=== PATIENT | female | born 1995 | race Caucasian/White ===

== ENCOUNTER → 2018-03-19 01:58 | Observation (INO) ==
[2018-03-19 00:43] LABS: Basophils % 0.2 %; Eosinophils # 0.1 K/mcL (0.0-0.6); Eosinophils % 0.4 %; Hematocrit 32.6 % (35.3-44.9); Hemoglobin 11.4 g/dL (11.5-15.4); Immature Granulocytes % 0.8 % (0-4); Lymphocytes # 2.8 K/mcL (0.6-4.6); Lymphocytes % 16.9 %; Mean Corpuscular Hemoglobin 31.6 pg (28.0-33.3); Mean Corpuscular Volume 90.3 fL (83.0-100.0); Mean Platelet Volume 9.5 fL (9.4-12.4); Monocytes % 5.7 %; Neutrophils # 12.6 K/mcL (1.6-8.9); Platelet Count 303 K/mcL (140-400); Red Blood Count 3.61 M/mcL (3.82-4.97); Red Cell Distribution Width 13.2 % (11.5-14.5)
[2018-03-19 00:45] LABS: Bilirubin,Urine Negative (Negative); Blood,Urine Negative (Negative); Clarity,Urine Clear (Clear); Color,Urine Yellow (Yellow); Glucose,Urine (UA) Normal (Normal); Ketones,Urine Trace mg/dL (Negative); Leukocyte Esterase,Urine Negative (Negative); Nitrite,Urine Negative (Negative); Protein,Urine Negative (Neg-Trace); Specific Gravity,Urine 1.006 (1.010-1.025); Urobilinogen,Urine Normal (Normal)
[2018-03-19 00:55] LABS: Amphetamine Screen,Urine Negative ng/mL (Cutoff=1000); Barbiturate Screen,Urine Negative ng/mL (Cutoff=200); Benzodiazepines Screen,Urine Negative ng/mL (Cutoff=200); Cannabinoid Screen,Urine Negative ng/mL (Cutoff = 50); Cocaine Screen,Urine Negative ng/mL (Cutoff= 300); Opiate Screen,Urine Negative ng/mL (Cutoff=300); Phencyclidine Screen,Urine Negative ng/mL (Cutoff=25)
[2018-03-19 01:07] LABS: BUN/Creatinine Ratio 10 (6-26); Blood Urea Nitrogen 4 mg/dL (6-20); Calcium 8.8 mg/dL (8.6-10.3); Carbon Dioxide 22 mEq/L (23-29); Chloride 103 mEq/L (98-107); Glucose 84 mg/dL (70-105); Osmolality,Calculated 280 (280-300); Potassium 3.7 mEq/L (3.5-5.1); Sodium 137 mEq/L (136-145); eGFR For Non-African Americans > 60 (> 60)
--- NOTE | 2018-03-19 01:26 | OB/GYN Progress Note ---
Date of Encounter: 03/19/18 Time of Encounter: 01:24 - Assessment and Plan (1) 25 weeks gestation of Current Visit: Yes Status: Acute (2) Viral gastroenteritis Current Visit: Yes Status: Acute Pt reports feeling better after IV fluids and zofran. She states she has zofran at home. She is now tolerating clear liquids. Discharge home with return precautions. (3) Decreased movement Current Visit: Yes Status: Acute FHT reassuring. Pt reports frequent movements since arrival to triage. Qualifiers: Fetus number: single or unspecified fetus Trimester: second trimester Qualified Code(s): O36.8120 - Decreased movements, second trimester, not applicable or unspecified Subjective - Subjective Interval history: 22 year-old presenting at 25w1d with c/o nausea/vomiting, headache, and decreased movement. She reports she has not been able to keep anything down since yesterday and now has developed a headache. She received a flu vaccine last week and reports feeling bad since. She believes she may have had some intermittent fevers but has not taken her temperature. No contractions, leaking or bleeding. Antepartum ROS: no loss of fluid, no vaginal bleeding, no movement normal , no contractions Objective - Exam FHR comments: FHT reassuring for GA Abdomen: Present: soft, gravid Uterus: Absent: tenderness - Labs Labs: Abnormal lab results WBC 16.7 K/mcL (4.3-11.1) H 03/19/18 00:25 RBC 3.61 M/mcL (3.82-4.97) L 03/19/18 00:25 Hgb 11.4 g/dL (11.5-15.4) L 03/19/18 00:25 Hct 32.6 % (35.3-44.9) L 03/19/18 00:25 Neutrophils # 12.6 K/mcL (1.6-8.9) H 03/19/18 00:25 Carbon Dioxide 22 mEq/L (23-29) L 03/19/18 00:25 BUN 4 mg/dL (6-20) L 03/19/18 00:25 Creatinine 0.39 mg/dL (0.60-1.20) L 03/19/18 00:25 Ur Specific [place] 1.006 (1.010-1.025) L 03/19/18 00:25 Urine Ketones Trace mg/dL (Negative) H 03/19/18 00:25
[~2018-03-19 01:58] MED LIST: *HR* Promethazine 25 MG/ML VIAL IVP PRN; Ondansetron 4 MG/2 ML VIAL IVP PRN; Ringers Solution, Lactated 1,000 ML IVC ONE
== END | disposition home or self-care (01) ==
LOC: 1NENULAB
PROVIDERS: ADMIT Registered Nurse; ATTEND Registered Nurse

== ENCOUNTER 2019-06-02 07:56 | Inpatient (IN) ==
[2019-06-02] MEDS ORDERED: *HR* Nalbuphine 10 MG/ML AMPUL IVP PRN (08:48)
[2019-06-02] MEDS ORDERED: Ondansetron 4 MG/2 ML VIAL IVP PRN (08:48)
[2019-06-02] MEDS ORDERED: Lidocaine 1% 20 ML MDV INFILT PRN (08:48)
[2019-06-02] MEDS ORDERED: Famotidine 20 MG/2 ML VIAL IVP PRN (08:48)
[2019-06-02] MEDS ORDERED: Metoclopramide 10 MG/2 ML VIAL IVP PRN (08:48)
[2019-06-02] MEDS ORDERED: Oxytocin 20 units/ LR 1000 mL 20 UNIT/1,000 ML BAG IVC SCH ×2 (09:00→15:50)
[2019-06-02] MEDS ORDERED: Ringers Solution, Lactated 1,000 ML IVC SCH (09:00)
[2019-06-02 09:26] LABS: Basophils % 0.2 %; Eosinophils # 0.1 K/mcL (0.0-0.6); Eosinophils % 0.7 %; Hematocrit 37.7 % (35.3-44.9); Hemoglobin 12.8 g/dL (11.5-15.4); Immature Granulocytes % 0.6 % (0-4); Lymphocytes % 16.8 %; Mean Corpuscular Hemoglobin 30.5 pg (28.0-33.3); Mean Platelet Volume 9.6 fL (9.4-12.4); Monocytes # 0.8 K/mcL (0.0-1.3); Monocytes % 6.6 %; Neutrophils # 8.8 K/mcL (1.6-8.9); Platelet Count 321 K/mcL (140-400); Red Blood Count 4.19 M/mcL (3.82-4.97); Red Cell Distribution Width 14.1 % (11.5-14.5); Segmented Neutrophils % 75.1 %; White Blood Count 11.6 K/mcL (4.3-11.1)
[2019-06-02 09:36] LABS: Amphetamine Screen,Urine Negative ng/mL (Cutoff=1000); Barbiturate Screen,Urine Negative ng/mL (Cutoff=200); Benzodiazepines Screen,Urine Negative ng/mL (Cutoff=200); Cannabinoid Screen,Urine Negative ng/mL (Cutoff = 50); Cocaine Screen,Urine Negative ng/mL (Cutoff= 300); Opiate Screen,Urine Negative ng/mL (Cutoff=300); Phencyclidine Screen,Urine Negative ng/mL (Cutoff=25)
[2019-06-02] MEDS ORDERED: Dextrose Gel 15 GM/37.5 ML TUBE PO PRN (09:58)
[2019-06-02] MEDS ORDERED: *HR* FentaNYL (PF) 100 MCG/2 ML VIAL ONE (11:55)
[2019-06-02] MEDS ORDERED: Bupivacaine-MPF 0.25% 10 ML VIAL ONE (11:55)
[2019-06-02] MEDS ORDERED: Epidural Premix (fent/bupiv) 110 ML EP ONE (11:56)
[2019-06-02] MEDS ORDERED: Epidural Premix (fent/bupiv) 110 ML EP SCH (15:00)
[2019-06-02] MEDS ORDERED: Acetaminophen 325 MG TABLET PO PRN (15:50)
[2019-06-02] MEDS ORDERED: Benzocaine/Menthol 56 GM AEROSOL SPRAY TP PRN (15:50)
[2019-06-02] MEDS ORDERED: Ibuprofen 600 MG TABLET PO PRN (15:50)
[2019-06-02] MEDS ORDERED: Lanolin 7 G OINT...G. TP PRN (15:50)
[2019-06-03 07:28] LABS: Basophils % 0.2 %; Eosinophils # 0.1 K/mcL (0.0-0.6); Eosinophils % 0.9 %; Hematocrit 36.7 % (35.3-44.9); Hemoglobin 11.8 g/dL (11.5-15.4); Immature Granulocytes % 0.6 % (0-4); Lymphocytes # 2.6 K/mcL (0.6-4.6); Lymphocytes % 20.8 %; Mean Corpuscular HGB Conc 32.2 g/dL (31.6-35.5); Mean Corpuscular Hemoglobin 29.9 pg (28.0-33.3); Mean Corpuscular Volume 93.1 fL (83.0-100.0); Monocytes # 1.1 K/mcL (0.0-1.3); Monocytes % 8.3 %; Neutrophils # 8.8 K/mcL (1.6-8.9); Platelet Count 264 K/mcL (140-400); Red Blood Count 3.94 M/mcL (3.82-4.97); Segmented Neutrophils % 69.2 %; White Blood Count 12.7 K/mcL (4.3-11.1)
[2019-06-03 07:54] VITALS: BP 121/64
[2019-06-03] MEDS ORDERED: Prenatal Vit/FA 1 EACH TABLET PO SCH (09:00)
== END 2019-06-03 16:02 | disposition home or self-care (01) | DRG 807 ==
LOC: 1NENULAB 07:56 → 1NENUOBS 15:49
PROVIDERS: ADMIT Obstetrics & Gynecology; ATTEND Obstetrics & Gynecology

== ENCOUNTER 2019-07-08 19:37 | Observation (INO) ==
[2019-07-08 21:50] LABS: Basophils % 0.3 %; Eosinophils # 0.1 K/mcL (0.0-0.6); Eosinophils % 0.5 %; Hematocrit 45.7 % (35.3-44.9); Hemoglobin 15.5 g/dL (11.5-15.4); Immature Granulocytes % 0.4 % (0-4); Lymphocytes # 1.5 K/mcL (0.6-4.6); Lymphocytes % 9.4 %; Mean Corpuscular HGB Conc 33.9 g/dL (31.6-35.5); Mean Corpuscular Hemoglobin 29.6 pg (28.0-33.3); Mean Corpuscular Volume 87.2 fL (83.0-100.0); Mean Platelet Volume 9.2 fL (9.4-12.4); Monocytes # 0.7 K/mcL (0.0-1.3); Monocytes % 4.6 %; Neutrophils # 13.1 K/mcL (1.6-8.9); Platelet Count 288 K/mcL (140-400); Red Blood Count 5.24 M/mcL (3.82-4.97); Red Cell Distribution Width 12.8 % (11.5-14.5); Segmented Neutrophils % 84.8 %; White Blood Count 15.5 K/mcL (4.3-11.1)
[2019-07-08 21:56] LABS: Bilirubin,Urine Negative (Negative); Blood,Urine Moderate (Negative); Clarity,Urine Clear (Clear); Color,Urine Yellow (Yellow); Glucose,Urine (UA) Normal (Normal); Ketones,Urine Negative (Negative); Leukocyte Esterase,Urine Trace (Negative); Nitrite,Urine Negative (Negative); PH,Urine 8.5 pH Units (5.0-8.0); Protein,Urine 30 mg/dL (Neg-Trace); Specific Gravity,Urine 1.024 (1.010-1.025); Urobilinogen,Urine Normal (Normal)
[2019-07-08 21:59] LABS: Bacteria,Urine None Seen per hpf (None-Few); Hyaline Casts,Urine None Seen per lpf (None-Few); Squamous Epithelial Cell,Urine Many per lpf (None-Few)
[2019-07-08 22:12] LABS: Alanine Aminotransferase 210 Units/L (7-52); Albumin 4.7 g/dL (3.5-5.7); Albumin/Globulin Ratio 1.5 (1.1-2.2); Alkaline Phosphatase 149 Units/L (34-104); Aspartate Amino Transferase 187 Units/L (13-39); BUN/Creatinine Ratio 14 (6-26); Bilirubin,Direct 0.1 mg/dL (0.0-0.2); Bilirubin,Indirect 0.3 mg/dL (0.0-1.0); Bilirubin,Total 0.4 mg/dL (0.3-1.0); Blood Urea Nitrogen 9 mg/dL (6-20); Calcium 9.8 mg/dL (8.6-10.3); Carbon Dioxide 25 mEq/L (23-29); Chloride 102 mEq/L (98-107); Globulin 3.2 g/dL (2.4-3.5); Glucose 104 mg/dL (70-105); Lipase 10 Units/L (11-82); Osmolality,Calculated 287 (280-300); Potassium 3.7 mEq/L (3.5-5.1); Sodium 139 mEq/L (136-145); Total Protein 7.9 g/dL (6.4-8.9); eGFR For African Americans > 60 (> 60); eGFR For Non-African Americans > 60 (> 60)
[2019-07-09] MEDS ORDERED: *HR* FentaNYL (PF) 100 MCG/2 ML VIAL IVP ONE (00:37)
[2019-07-09] MEDS ORDERED: MetroNIDAZOLE 500 MG/100 ML 500 MG/100 ML BAG IVPB ONE (00:37)
[2019-07-09] MEDS ORDERED: Ondansetron 4 MG/2 ML VIAL IVP ONE (00:37)
[2019-07-09] MEDS ORDERED: 0.9 % Sodium Chloride 1,000 ML IVC ONE (00:48)
[2019-07-09] MEDS ORDERED: Naloxone 0.4 MG/ML INJ IVP PRN ×2 (07:33→21:10)
[2019-07-09] MEDS ORDERED: Acetaminophen 325 MG TABLET PO PRN ×2 (07:33→21:10)
[2019-07-09] MEDS ORDERED: Ondansetron 4 MG/2 ML VIAL IVP PRN ×2 (07:33→21:10)
[2019-07-09] MEDS ORDERED: *HR* Dextrose 50 % in Water (Syg) 50 ML SYRINGE IVP PRN ×2 (07:36→21:10)
[2019-07-09] MEDS ORDERED: D5% in Water 1,000 ML IVC PRN ×2 (07:36→21:10)
[2019-07-09] MEDS ORDERED: Dextrose Gel 15 GM/37.5 ML TUBE PO PRN ×4 (07:36→21:10)
[2019-07-09 08:54] LABS: Prothrombin Time 11.8 Seconds (9.4-12.1)
[2019-07-09 08:57] LABS: Activated Partial Thrombo Time 32.2 Seconds (26.0-36.0)
[2019-07-09] MEDS: MetroNIDAZOLE 500 MG/100 ML 500 MG/100 ML BAG IVPB SCH ×3 (09:33→22:05)
[2019-07-09] MEDS: D5% in Lactated Ringers 1,000 ML IVC SCH ×2 (09:34→21:55)
[2019-07-09] MEDS: Insulin LISPRO 300 UNITS/3 ML VIAL SQ SCH ×2 (13:01→19:26)
[2019-07-09] MEDS ORDERED: Bupivacaine/EPI 1:200k 0.5%PF 30 ML VIAL ONE (17:45)
[2019-07-09] MEDS ORDERED: Lidocaine HCL 4 ML Topical Solution (Laryng-O-Jet Kit Sterile Pak) TP ONE (17:49)
[2019-07-09] MEDS ORDERED: Dexamethasone 4 MG/ML VIAL ONE (17:52)
[2019-07-09] MEDS ORDERED: *HR* Rocuronium Bromide 50 MG/5 ML VIAL ONE (17:52)
[2019-07-09] MEDS ORDERED: *HR* Succinylcholine 200 MG/10 ML VIAL IVP ONE (17:52)
[2019-07-09] MEDS ORDERED: Lidocaine -MPF 2% 2 ML VIAL ONE (17:52)
[2019-07-09] MEDS ORDERED: *HR* Propofol 200 MG/20 ML VIAL IVP ONE (17:52)
[2019-07-09] MEDS ORDERED: Ondansetron 4 MG/2 ML VIAL ONE (17:52)
[2019-07-09] MEDS ORDERED: *HR* Promethazine 25 MG/ML VIAL IVP PRN (17:53)
[2019-07-09] MEDS ORDERED: *HR* HYDROmorphone 2 MG TABLET PO PRN (17:53)
[2019-07-09] MEDS ORDERED: *HR* OxyCODONE Immed Rel 5 MG TABLET PO PRN (17:53)
[2019-07-09] MEDS ORDERED: *HR* Labetalol 20 MG/4 ML SYRINGE IVP PRN (17:53)
[2019-07-09] MEDS ORDERED: *HR* HYDROmorphone (PF) 1 MG/ML SYRINGE IVP PRN (17:53)
[2019-07-09] MEDS ORDERED: *HR* FentaNYL (PF) 100 MCG/2 ML VIAL ONE (17:53)
[2019-07-09] MEDS ORDERED: *HR* Midazolam HCl 2 MG/2 ML VIAL ONE (17:53)
[2019-07-09] MEDS ORDERED: Famotidine 20 MG/2 ML VIAL ONE (18:05)
[2019-07-09] MEDS ORDERED: Acetaminophen IV 1,000 MG/100 ML INFUS..BTL ONE (18:05)
[2019-07-09] MEDS ORDERED: Isovue-300 50ML VIAL ONE (18:06)
[2019-07-09] MEDS ORDERED: Scopolamine Patch 1.5 MG PATCH.TD72 ONE (18:08)
[2019-07-09] MEDS ORDERED: *HR* HYDROMORPHONE 2 MG/ML VIAL ONE (18:40)
[2019-07-09] MEDS ORDERED: D5% in Lactated Ringers 1,000 ML IVC SCH (21:10)
[2019-07-10] MEDS: Insulin LISPRO 300 UNITS/3 ML VIAL SQ SCH ×4 (00:04→17:39)
[2019-07-10] MEDS: MetroNIDAZOLE 500 MG/100 ML 500 MG/100 ML BAG IVPB SCH ×4 (04:39→22:16)
[2019-07-10 06:48] LABS: Basophils % 0.1 %; Hematocrit 35.8 % (35.3-44.9); Immature Granulocytes % 0.4 % (0-4); Lymphocytes # 1.2 K/mcL (0.6-4.6); Lymphocytes % 8.1 %; Mean Corpuscular HGB Conc 34.1 g/dL (31.6-35.5); Mean Corpuscular Hemoglobin 29.8 pg (28.0-33.3); Mean Corpuscular Volume 87.3 fL (83.0-100.0); Mean Platelet Volume 9.4 fL (9.4-12.4); Monocytes # 1.1 K/mcL (0.0-1.3); Monocytes % 7.5 %; Neutrophils # 12.2 K/mcL (1.6-8.9); Platelet Count 244 K/mcL (140-400); Red Cell Distribution Width 13.1 % (11.5-14.5); Segmented Neutrophils % 83.9 %; White Blood Count 14.6 K/mcL (4.3-11.1)
[2019-07-10 06:49] LABS: Hemoglobin 12.2 g/dL (11.5-15.4)
[2019-07-10 07:09] LABS: Alanine Aminotransferase 359 Units/L (7-52); Albumin 3.5 g/dL (3.5-5.7); Albumin/Globulin Ratio 1.5 (1.1-2.2); Alkaline Phosphatase 176 Units/L (34-104); Aspartate Amino Transferase 218 Units/L (13-39); BUN/Creatinine Ratio 7 (6-26); Bilirubin,Total 0.5 mg/dL (0.3-1.0); Blood Urea Nitrogen 4 mg/dL (6-20); Calcium 8.7 mg/dL (8.6-10.3); Carbon Dioxide 27 mEq/L (23-29); Chloride 105 mEq/L (98-107); Globulin 2.3 g/dL (2.4-3.5); Glucose 129 mg/dL (70-105); Magnesium 1.8 mg/dL (1.6-2.6); Osmolality,Calculated 289 (280-300); Phosphorous 3.7 mg/dL (2.7-4.5); Potassium 4.2 mEq/L (3.5-5.1); Sodium 140 mEq/L (136-145); Total Protein 5.8 g/dL (6.4-8.9); eGFR For African Americans > 60 (> 60); eGFR For Non-African Americans > 60 (> 60)
[2019-07-10] MEDS: D5% in Lactated Ringers 1,000 ML IVC SCH (10:58)
[2019-07-10] MEDS ORDERED: Ondansetron 4 MG/2 ML VIAL ONE (17:26)
[2019-07-10] MEDS ORDERED: Lidocaine -MPF 4% 5 ML AMPUL ONE (17:26)
[2019-07-10] MEDS ORDERED: *HR* Propofol 200 MG/20 ML VIAL IVP ONE (17:26)
[2019-07-10] MEDS ORDERED: *HR* Midazolam HCl 2 MG/2 ML VIAL ONE (17:26)
[2019-07-10] MEDS ORDERED: *HR* Succinylcholine 200 MG/10 ML VIAL IVP ONE (17:26)
[2019-07-10] MEDS ORDERED: *HR* FentaNYL (PF) 100 MCG/2 ML VIAL ONE (17:26)
[2019-07-10] MEDS ORDERED: Dexamethasone 4 MG/ML VIAL ONE (17:26)
[2019-07-10] MEDS ORDERED: Lidocaine -MPF 2% 2 ML VIAL ONE (17:26)
[2019-07-10] MEDS ORDERED: Acetaminophen IV 1,000 MG/100 ML INFUS..BTL ONE (17:37)
[2019-07-10] MEDS ORDERED: Indomethacin 50 MG SUPP.RECT RC ONE (18:06)
[2019-07-11 02:10] LABS: Albumin 3.4 g/dL (3.5-5.7); Albumin/Globulin Ratio 1.4 (1.1-2.2); Bilirubin,Direct 0.1 mg/dL (0.0-0.2); Bilirubin,Indirect 0.2 mg/dL (0.0-1.0); Bilirubin,Total 0.3 mg/dL (0.3-1.0); Globulin 2.4 g/dL (2.4-3.5); Total Protein 5.8 g/dL (6.4-8.9)
[2019-07-11] MEDS: Insulin LISPRO 300 UNITS/3 ML VIAL SQ SCH ×2 (04:10→08:06)
[2019-07-11] MEDS: MetroNIDAZOLE 500 MG/100 ML 500 MG/100 ML BAG IVPB SCH ×2 (05:21→10:15)
[2019-07-11 11:06] VITALS: BP 109/57
== END 2019-07-11 12:55 | disposition home or self-care (01) ==
LOC: 1NENUPED 19:37 → EMEROOARM 19:37 → SUATTDRO 07-09 01:27 → 1NENUPED 07-09 01:43 → CDU 07-10 11:22
PROVIDERS: ADMIT Internal Medicine; ATTEND Internal Medicine